=== PATIENT | male | born 1965 | race Caucasian/White ===

== ENCOUNTER 2019-06-20 10:17 | Emergency (ER) | payer OTHER ==
[~2019-06-20] VITALS: Wt 90.9 kg
[~2019-06-20 10:17] MED LIST: ARIP10TA12 PO; CEPH-443 PO; DULO60CA6 PO; DULO60CA60 PO; HYDR-3980 PO; IBUP-1542 PO; LAMO200T6 PO; QUET50TA PO; SULF1TAB31 PO
[2019-06-20] MEDS ORDERED: KETOROLAC 30 MG INJ IM STA (11:01)
[2019-06-20] MEDS ORDERED: LIDOCAINE 2% (MDV) 20 ML INJ INJ ONE (11:30)
[2019-06-20 12:35] VITALS: BP 127/79; PULSE 82; RESP 20
== END 2019-06-20 13:01 | disposition home or self-care (01) ==
LOC: FTE 10:17
DX: L02.211 Cutaneous abscess of abdominal wall (principal)
CPT/HCPCS: 10060; 96372; J1885; Z7502; Z7610

== ENCOUNTER 2019-06-22 10:25 | Inpatient (IN) | payer OTHER ==
[~2019-06-22] VITALS: Ht 182.9 cm; Wt 92.9 kg
[2019-06-22 10:26] VITALS: Ht 182.9 cm; Wt 92.9 kg
[2019-06-22] MEDS ORDERED: KETOROLAC 15 MG INJ IV STA (11:44)
[2019-06-22] MEDS ORDERED: SOD CHLORIDE 0.9% 1,000 ML IV STA (11:44)
[2019-06-22] MEDS ORDERED: VANCOMYCIN 1 GM (PMX) 250 ML IVPB ONE (14:30)
[2019-06-22] MEDS ORDERED: ACETAMINOPHEN 325 MG TAB PO PRN ×2 (15:00)
[2019-06-22] MEDS ORDERED: NACL 0.9% 3 ML SYG IV SCH (15:00)
[2019-06-22] MEDS ORDERED: hydrALAzine 20 MG INJ IV PRN (15:00)
[2019-06-22] MEDS ORDERED: MAGNESIUM HYDROXIDE 30ML CUP PO PRN (15:00)
[2019-06-22] MEDS ORDERED: LORAZEPAM 2 MG INJ IV PRN (15:00)
[2019-06-22] MEDS ORDERED: DOCUSATE SODIUM 100 MG CAP PO PRN (15:00)
[2019-06-22] MEDS ORDERED: NITROGLYCERIN (SL) 0.4 MG TAB SL PRN (15:00)
[2019-06-22] MEDS ORDERED: morphine 2 MG INJ IV PRN (15:00)
[2019-06-22] MEDS ORDERED: ONDANSETRON 4 MG INJ IV PRN ×2 (15:00)
[2019-06-22] MEDS ORDERED: ALBUTEROL/IPRATROPIUM (NEB) 3 ML AMP HHN PRN (15:00)
[2019-06-22] MEDS ORDERED: VANCOMYCIN IV PER PHARMACY XX SCH (15:00)
[2019-06-22] MEDS ORDERED: HYDROCODONE/APAP (5/325) TAB PO PRN (15:00)
[2019-06-22 16:47] VITALS: BP 129/87; PULSE 66
[2019-06-22] MEDS: PIPER-TAZO 3.375 GM IV (PMX) 100 ML IVPB SCH (17:48)
[2019-06-22] MEDS: SOD CHLORIDE 0.45% 1,000 ML IV SCH (17:52)
[2019-06-22] MEDS ORDERED: traMADol 50 MG TAB GTB PRN (18:00)
[2019-06-22 20:00] VITALS: BP 121/86; PULSE 67; RESP 18
[2019-06-22] MEDS ORDERED: QUETIAPINE 25 MG TAB PO SCH (21:00)
[2019-06-22] MEDS ORDERED: LAMOTRIGINE 100 MG TAB PO SCH (21:00)
[2019-06-22] MEDS ORDERED: DULOXETINE 30 MG CAP DR PO SCH (21:00)
[2019-06-22] MEDS: VANCOMYCIN 1.5 GM/NS 250 ML 250 ML IVPB SCH (21:44)
[2019-06-22] MEDS: HEPARIN 5,000 UNIT/1 ML VIAL SC SCH (21:55)
[2019-06-23] MEDS: PIPER-TAZO 3.375 GM IV (PMX) 100 ML IVPB SCH ×3 (00:28→11:23)
[2019-06-23 02:00] VITALS: BP 110/62; PULSE 64; RESP 18
[2019-06-23] MEDS: SOD CHLORIDE 0.45% 1,000 ML IV SCH (03:51)
[2019-06-23 07:57] VITALS: BP 135/89; PULSE 67; RESP 19
[2019-06-23] MEDS: HEPARIN 5,000 UNIT/1 ML VIAL SC SCH (08:34)
[2019-06-23] MEDS ORDERED: ARIPIPRAZOLE 10 MG TAB PO SCH (09:00)
[2019-06-23] MEDS: VANCOMYCIN 1.5 GM/NS 250 ML 250 ML IVPB SCH (13:23)
[2019-06-23 14:34] VITALS: BP 120/79; PULSE 69; RESP 17
== END 2019-06-23 17:00 | disposition home or self-care (01) | DRG 603 ==
LOC: E/R 10:25 → 2NE 14:34
PROVIDERS: ADMIT Hospitalist; ATTEND Hospitalist
DX: L03.314 Cellulitis of groin (principal); F33.9 Major depressive disorder, recurrent, unspecified; L02.214 Cutaneous abscess of groin; R73.03 Prediabetes
CPT/HCPCS: 36415; 76536; 80048; 80053; 80061; 83036; 83605; 83735; 84100; 84439; 84443; 85025; 85610; 85730; 96374; J0400; J1644; J1885; J2543; J3370; J7030